=== PATIENT | male | born 1980 | race Caucasian/White ===

== ENCOUNTER 2024-08-01 10:38 | Emergency (ER) | payer OTHER, SELFPAY ==
[2024-08-01 10:44] VITALS: BP 117/80; PULSE 71; RESP 16; TEMP 36.6; O2SAT 98
--- NOTE | 2024-08-01 11:41 | ED_ITS ---
HPI - General Adult General Chief complaint: Unspecified Stated complaint: I need scabies medication Time Seen by Provider: 08/01/24 10:40 History of Present Illness HPI narrative: 44-year-old otherwise healthy male presenting to the emergency department for evaluation of scabies exposure. He presents with his daughter who was treated and evaluated for scabies by her airborne missions systems yesterday. She was prescribed permethrin and ivermectin high-dose for treatment of systemic scabies. Patient was referred to the hospital for obtaining his own prescriptions secondary to exposure. Patient has of symptoms at this time, no rash, no itchiness, no fevers or chills. He was otherwise in her normal state of health but does live with the patient was exposed. Patient has no complaints at this time is requesting prescriptions. Related Data Allergies Allergy/AdvReac Type Severity Reaction Status Date / Time No Known Allergies Allergy Verified 08/01/24 10:44 Review of Systems Review of Systems: As reviewed above in HPI Exam Narrative: GENERAL: [Well-appearing, well-nourished, and in no acute distress.] HEAD: [Normocephalic, atraumatic.] EYES: [PERRLA and EOMI.] NECK: Supple. CHEST: Nonlabored breathing EXTREMITIES: Normal range of motion. [No edema.] SKIN: Warm, dry, no rash. No linear burrows or any evidence of scabies in the hands or wrists NEURO: [No focal deficits]. Alert and oriented [x3.] PSYCH: [Normal mood and affect.] Course Vital Signs Vital signs: Vital Signs Temperature 36.6 C 08/01/24 10:44 Pulse Rate 71 08/01/24 10:44 Respiratory Rate 16 08/01/24 10:44 Blood Pressure 117/80 08/01/24 10:44 Pulse Oximetry 98 08/01/24 10:44 Oxygen Delivery Room Air 08/01/24 10:44 Temperature 36.6 C 08/01/24 10:44 Pulse Rate 71 08/01/24 10:44 Respiratory Rate 16 08/01/24 10:44 Blood Pressure 117/80 08/01/24 10:44 Pulse Oximetry 98 08/01/24 10:44 Oxygen Delivery Room Air 08/01/24 10:44 Medical Decision Making [facility] Narrative Medical decision making narrative: 44-year-old otherwise healthy male presenting for scabies exposure. His daughter has systemic scabies and is being treated with permethrin and i vermectin. Patient is requesting prescriptions for the above at the request of his daughter's airborne missions systems who referred him to the hospital for zone post exposure prophylactic medication. Patient has no signs or symptoms of scabies on his extremities, otherwise well-appearing and denies any itchiness or rash. His daughter is present at bedside does have an obvious systemic appearing rash consistent with scabies. Patient will be provided prescription for permethrin and ivermectin weight based dose. Encouraged to follow-up with his primary care provider. Medical Records Medical records reviewed: Yes I reviewed the external patient's medical records. Vital Signs Vital Signs: Vital Signs Temperature 36.6 C 08/01/24 10:44 Pulse Rate 71 08/01/24 10:44 Respiratory Rate 16 08/01/24 10:44 Blood Pressure 117/80 08/01/24 10:44 Pulse Oximetry 98 08/01/24 10:44 Oxygen Delivery Room Air 08/01/24 10:44 Temperature 36.6 C 08/01/24 10:44 Pulse Rate 71 08/01/24 10:44 Respiratory Rate 16 08/01/24 10:44 Blood Pressure 117/80 08/01/24 10:44 Pulse Oximetry 98 08/01/24 10:44 Oxygen Delivery Room Air 08/01/24 10:44 Discharge Plan Discharge Clinical Impression: Exposure to scabies Patient Disposition: Home, Self-Care Condition: Stable Instructions: Antibiotic Form, Scabies (ED) Additional Instructions: Take the prescription medications as directed, follow-up with your regular doctor. Patient Language: [place]olan Prescriptions: New ivermectin 3 mg tablet 15,000 mcg PO ONCE Qty: 5 0RF permethrin 5 % cream 1 applic topical Q14D Qty: 60 0RF Rx Instructions: apply second treatment 14 days after first treatment if live lice remain Follow-up/Referrals: UNKNOWN,DOCTOR [Non-Staff] - Time of Disposition: 10:48
== END 2024-08-01 11:02 | disposition home or self-care (01) ==
PROVIDERS: Emergency Provider Student in an Organized Health Care Education/Training Program
DX: Z20.7 Contact with and (suspected) exposure to pediculosis, acariasis and other infestations (principal)
CPT/HCPCS: 99283